=== PATIENT | male | born 2000 | race Caucasian/White ===

== ENCOUNTER 2022-09-07 18:45 | Emergency (ER) | payer OTHER ==
[2022-09-07 18:59] VITALS: BP 114/53; PULSE 66; RESP 20; TEMP 98.2
--- NOTE | 2022-09-07 19:31 | ED ---
General Adult HPI - General Chief complaint: Syncope Stated complaint: AMS Time Seen by Provider: 09/07/22 19:11 Source: patient, RN notes reviewed Mode of arrival: ambulatory Limitations: no limitations - History of Present Illness Initial comments: Patient is a 21-year-old male presenting to the emergency room brought down from the floor where he was visiting his father. He reports feeling clammy and lightheaded prior to his syncopal event while his father was having blood work drawn. He denies ever having a similar reaction to exposure to blood or other events. He reports feeling well at this time without any weakness, lightheadedness, dizziness or focal or neurological deficits. He has never had a syncopal event previously and is overall healthy and does not take any medications on a regular basis. - Related Data Allergies Allergy/AdvReac Type Severity Reaction Status Date / Time No Known Allergies Allergy Verified 09/07/22 18:59 Review of Systems ROS Statement: Those systems with pertinent positive or pertinent negative responses have been documented in the HPI. ROS Other: All systems not noted in ROS Statement are negative. Past Medical History Past Medical History: No Reported History History of Any Multi-Drug Resistant Organisms: None Reported Past Surgical History: No Surgical Hx Reported Smoking Status: Never smoker Past Alcohol Use History: None Reported Past Drug Use History: None Reported General Exam Limitations: no limitations General appearance: alert, in no apparent distress Head exam: Present: atraumatic, normocephalic, normal inspection Eye exam: Present: normal appearance, PERRL, EOMI. Absent: scleral icterus, conjunctival injection, nystagmus, periorbital swelling ENT exam: Present: normal exam, mucous membranes moist Neck exam: Present: normal inspection, full ROM Respiratory exam: Present: normal lung sounds bilaterally. Absent: respiratory distress, wheezes, rales, rhonchi, stridor, accessory muscle use Cardiovascular Exam: Present: regular rate, normal rhythm, normal heart sounds. Absent: systolic murmur, diastolic murmur, rubs, gallop, clicks GI/Abdominal exam: Present: soft, normal bowel sounds. Absent: distended, tenderness, guarding, rebound, rigid Extremities exam: Present: normal inspection, full ROM, normal capillary refill. Absent: tenderness, pedal edema, joint swelling, calf tenderness Back exam: Present: normal inspection Neurological exam: Present: alert, oriented X3, CN II-XII intact, normal gait Psychiatric exam: Present: normal affect, normal mood Skin exam: Present: warm, dry, intact, normal color. Absent: rash Course Vital Signs 09/07/22 18:52 Temperature 98.2 F Pulse Rate 66 Respiratory 20 Rate Blood Pressure 114/53 O2 Sat by Pulse 98 Oximetry Medical Decision Making - Medical Decision Making 21-year-old male presenting to the emergency room with a single syncopal event while watching his father had blood drawn. EKG obtained showing normal sinus rhythm. Now feels well without any focal neurological deficits and without previous event. No indication for further diagnostic imaging or laboratory studies. Syncopal events reviewed with patient. Encouraged maintaining good hydration avoidance of caffeine and follow-up with his primary care provider. Will discharge home. Case discussed with Dr. Garcia. - EKG Data EKG Comments: Sinus rhythm with sinus arrhythmia, ventricular rate 67 bpm, WV interval 139 ms, QRS duration 96 ms QT/QTC 374/390 ms PRT axes 71, 86, 71 Disposition Clinical Impression: Vasovagal syncope Disposition: HOME SELF-CARE Condition: Good Instructions (If sedation given, give patient instructions): Syncope (DC) Additional Instructions: Please drink plenty of fluids. Avoid caffeinated products. Please follow-up with your primary care provider. Please change positions slowly. Please return to the Emergency Department if symptoms worsen or any other concerns. Is patient prescribed a controlled substance at d/c from ED?: No Referrals: None,Stated [Primary Care Provider] - 1-2 days Time of Disposition: 19:31
== END 2022-09-07 19:44 | disposition home or self-care (01) ==
LOC: EC 18:45
DX: R55 Syncope and collapse (principal)
CPT/HCPCS: 93005; 99284